=== PATIENT | female | born 2000 | race Caucasian/White ===

== ENCOUNTER 2024-03-25 11:07 | Emergency (ER) | payer OTHER, SELFPAY ==
[2024-03-25 11:20] VITALS: BP 117/87; PULSE 96; RESP 16; TEMP 36.8; O2SAT 99
--- NOTE | 2024-03-25 11:34 | ED.URI ---
HPI - URI/Sore Throat General Chief Complaint: Upper Respiratory Infection Stated Complaint: cold symptoms Time Seen by Provider: 03/25/24 11:34 Source: patient Mode of arrival: ambulatory Limitations: no limitations History of Present Illness HPI Narrative: 23 yo F presents with c/o sinus congestion, PND, sinus pressure and headaches since DEC. Symptoms recently worse. Saw PCP and given augmentin. Still had symptoms so went to [facility] in [facility] and was told had sinus infection after had camera look at sinuses. Switched abx to doxycylcine and taking steroids. Patient taking daily antihistamine and is also doing Flonase and is Astelin nasal sprays. Patient reports no change in symptoms. Patient reports body aches, fatigue, chills. All systems reviewed and negative except as noted. Related Data Home Medications ?Medication ?Instructions ?Recorded ?Confirmed ?Last Taken ?Type amoxicillin 875 mg-potassium tablet 03/25/24 Unknown History clavulanate 125 mg tablet azelastine 137 mcg (0.1 %) nasal intranasal 03/25/24 Unknown History spray bupropion HCl 150 mg 24 hr tablet, mg PO 03/25/24 Unknown History extended release buspirone 5 mg tablet mg 03/25/24 Unknown History doxycycline hyclate 100 mg capsule mg 03/25/24 Unknown History fluticasone propionate 50 intranasal 03/25/24 Unknown History mcg/actuation nasal spray,suspension prednisone 20 mg tablet mg 03/25/24 Unknown History Allergies Allergy/AdvReac Type Severity Reaction Status Date / Time No Known Allergies Allergy Verified 03/25/24 11:22 Review of Systems Review of Systems: CONSTITUTIONAL: Denies fever, chills, or sweats. Reports fatigue. EYES: Denies visual changes, redness, or discharge. ENT: Reports rhinorrhea, congestion, postnasal drainage. Denies sore throat, or otalgia. CARDIOVASCULAR: Denies chest pain, palpitations, or edema. RESPIRATORY: Denies cough or dyspnea. GASTROINTESTINAL: Denies abdominal pain, nausea, vomiting, or diarrhea. GENITOURINARY: Denies dysuria or hematuria. SKIN: Denies rash or itching. MUSCULOSKELETAL: Denies back pain, joint pain, or myalgia. NEUROLOGIC: Denies headache, numbness, or weakness. PSYCHIATRIC: Denies anxiety or depression. All other systems reviewed are negative, except as documented in HPI. PMFSH Comments At time of signature, agree with nursing past medical, surgical, social and family history. There is no relevant family history pertinent to the presenting complaint. Exam Narrative: GENERAL: This is a well-nourished, well-developed patient, in no apparent distress. HEAD: normocephalic, atraumatic. EYES: PERRL. Sclera clear/white. Vision is grossly intact. EARS: External ears normal, auditory canals clear and without drainage, TMs normal without perforation. Hearing grossly intact. NOSE: External nose normal with mild congestion, clear nasal drainage, erythema and swelling to bilateral nares THROAT: Mucous membranes moist, postnasal drainage NECK: Neck supple, non-tender without lymphadenopathy, masses or thyromegaly. CARDIOVASCULAR: Regular rate and rhythm without murmurs, gallops, or rubs. RESPIRATORY: Clear to auscultation. Breath sounds equal bilaterally. No wheezes, rales, or rhonchi. SKIN: warm, Dry, intact with no suspicious lesions or rash, good texture and turgor. NEURO: awake, alert, and oriented to person, place and time. There were no obvious focal neurologic abnormalities. EXTREMITIES: No joint tenderness, effusion, or edema noted. Course Course Level of Care: Express Care Visit Vital Signs Vital signs: Vital Signs Temperature 36.8 C 03/25/24 11:20 Pulse Rate 96 03/25/24 11:20 Respiratory Rate 16 03/25/24 11:20 Blood Pressure 117/87 03/25/24 11:20 Pulse Oximetry 99 03/25/24 11:20 Temperature 36.8 C 03/25/24 11:20 Pulse Rate 96 03/25/24 11:20 Respiratory Rate 16 03/25/24 11:20 Blood Pressure 117/87 03/25/24 11:20 Pulse Oximetry 99 03/25/24 11:20 Reviewed MDM - URI/Sore Throat MDM Narrative Medical decision making narrative: COVID test negative. Recommend patient continue doxycycline, steroids and allergy medications. Referred to ENT an tent assembler for further evaluation of symptoms. Patient is aware of diagnosis, understands and agrees to treatment plan. Anticipatory guidance given. Patient agrees to follow-up as directed and is aware of reasons to seek care at the emergency department. Portions of this record may have been created with voice recognition software Differential Diagnosis Differential diagnosis: Likely upper respiratory infection, sinusitis and viral infection Lab Data Labs: Lab Results 03/25/24 Range/Units 11:54 POC Influenza A Ag Negative (Negative) POC Influenza B Ag Negative (Negative) POC SARS CoV-2 Ag Negative (Negative) Discharge Plan Discharge Clinical Impression: Acute bacterial sinusitis Patient Disposition: Home, Self-Care Condition: Stable Instructions: Antibiotic Form, Sinusitis (ED) Additional Instructions: Continue taking medications prescribed at [facility] visit. Follow up with an Ear, Nose and Throat specialist and an tent assembler for further evaluation. Patient Language: Chinese Prescriptions: No Action amoxicillin-pot clavulanate 875-125 mg tablet buspirone 5 mg tablet doxycycline hyclate 100 mg capsule prednisone 20 mg tablet fluticasone propionate 50 mcg/actuation spray,suspension INTRANASAL bupropion HCl 150 mg tablet extended release 24 hr PO azelastine 137 mcg (0.1 %) spray,non-aerosol INTRANASAL Follow-up/Referrals: [facility] [place] [Outside] Rene Gonzales MD [Non-Staff] - [facility],Kylie Hutson MD [Primary Care Provider] - Time of Disposition: 12:02
[2024-03-25 11:56] LABS: EDCOVIDSCREEN Negative (Negative); EDINFLUASCREEN Negative (Negative); EDINFLUBSCREEN Negative (Negative)
== END 2024-03-25 12:06 | disposition home or self-care (01) ==
PROVIDERS: Emergency Provider Nurse Practitioner Family; PCP Family Medicine
DX: J01.80 Other acute sinusitis (principal); B96.89 Other specified bacterial agents as the cause of diseases classified elsewhere; Z20.822 Contact with and (suspected) exposure to COVID-19
CPT/HCPCS: 87426; 87804; 99202; G0463